=== PATIENT | female | born 1985 | race Caucasian/White ===

== ENCOUNTER 2023-09-11 14:02 | Emergency (ER) | payer BC, SELFPAY ==
[2023-09-11 14:15] VITALS: BP 112/75
[2023-09-11 14:29] LABS: % Basophils 0.4 % (0-2); % Eosinophils 1.7 % (0-6); % Immature Granulocytes 0.4 % (0-0.5); % Lymphocytes 30.4 % (20.5-51.1); % Monocytes 6.8 % (1.7-9.3); % Neutrophils 60.3 % (42.2-75.2); Absolute Eosinophils 0.1 10^3/uL (0-0.7); Absolute Lymphocytes 1.4 10^3/uL (1.2-3.4); Absolute Monocytes 0.3 10^3/uL (0.1-0.6); Absolute Neutrophils 2.9 10^3/uL (1.4-6.5); Hematocrit 33.8 % (37.0-47.0); Hemoglobin 12.1 g/dL (12.0-16.0); Mean Corp Hgb Conc. 35.8 g/dL (33.0-37.0); Mean Corpuscular Hgb 29.3 pg (27.0-31.0); Mean Corpuscular Volume 81.8 fL (81.0-99.0); Mean Platelet Volume 10.1 fL (7.4-10.4); Nucleated Red Blood Cells % 0 %; Platelet Count 234 10^3/uL (130-400); Red Blood Cell Count 4.13 10^6/uL (4.20-5.40); Red Cell Dist. Width 12.1 % (11.5-14.5); White Blood Cell Count 4.7 10^3/uL (4.8-10.8)
[2023-09-11 14:42] LABS: HCG, Serum Qualitative Screen Negative
[2023-09-11 15:12] LABS: ALT (SGPT) 13 U/L (0-35); AST (SGOT) 25 U/L (14-36); Albumin 4.4 g/dl (3.5-5.0); Alkaline Phosphatase 58 U/L (38-126); Blood Urea Nitrogen 12 mg/dl (7-17); Carbon Dioxide 24 mmol/L (22-30); Chloride 106 mmol/L (98-107); Glucose 116 mg/dl (70-99); Potassium 3.7 mmol/L (3.5-5.1); Sodium 139 mmol/L (135-145); Total Bilirubin 0.5 mg/dl (0.2-1.3); eGFR > 60.00
--- NOTE | 2023-09-11 15:42 | ED.GENMED ---
History of Present Illness
General
Chief Complaint: Vaginal Bleeding
Source: patient
Exam Limitations: none
Time Seen by Provider: 09/11/23 15:09
Nursing documentation reviewed up to this point in time: agreed with
Travel History
Have you had any contact with someone who has COVID-19?: No
Do you have any symptoms of coronavirus? Fever > 100 degrees, chills, cough, shortness of breath, sore throat, loss of taste or smell, muscle aches, or headache?: No
History of Present Illness
History of Present Illness:
37 female G2 to normal so vaginal deliveries, has been having heavy periods for some time worse over the past few months with cramps passing a lot of blood intermittent spotting between her periods, with some painful sexual activity intermittently,
menstrual cycle started yesterday last night was heavy, she spoke to her PCP who spoke to her Hand Stripper who referred her to the ER, no chest pain shortness of breath no syncope no particularly painful sexual activity, does not believe anything internally
been torn, etc.
Past History
Past History
ED Past Medical History: None
ED Past Surgical History: Gynecological (Question cervical biopsy)
Social History
Tobacco: Non-smoker
Alcohol: None
Drug: None
Personal:
Living: with family
Employment: Employed
Review of Systems
Review of Systems
All Other Systems: Not applicable
Constitutional: Reports no symptoms; Denies fatigue
EENT: Reports no symptoms
Respiratory: Reports no symptoms
Cardiac: Reports no symptoms
ABD/GI: Reports no symptoms
: Reports bleeding
Musculoskeletal: Reports no symptoms
Skin: Reports no symptoms
Phy Exam
Physical Exam
Physical Exam:
Physical Exam
General: no apparent distress, not acutely ill
Neck: No jaundice
Heart: s1/s2 regular rate and rhythm, no murmur. equal radial pulses.
Lungs: no acute respiratory distress. clear bilaterally
Abdomen: Nontender
Neuro: alert and oriented. no focal neurological deficits
Skin: no rash
Psychiatric: well kept. interactive and cooperative
Extremities: no edema.
Course
Orders/Labs/Results
Orders:
Orders
09/11/23 14:18
Test Result ONCE
09/11/23 14:22
Complete Blood Count/With Diff Urgent
Comprehensive Metabolic Panel Urgent
HCG, Serum Qualitative Screen Urgent
09/11/23 15:11
US Pelvis Only (non-obstetric) Urgent
Comment:
Reason For Exam: bleeding
09/11/23 15:22
0.9% Sodium Chloride 1000 ml [Nss] 1,000 ml IV BOLUS
Ketorolac [Toradol] 30 mg IV NOW STA
09/11/23 18:08
Tranexamic Acid [Cyklokapron] 1,300 mg PO NOW STA
Abnormal Lab Results
09/11/23
14:22
WBC 4.7 L 10^3/uL
(4.8-10.8)
RBC 4.13 L 10^6/uL
(4.20-5.40)
Hct 33.8 L %
(37.0-47.0)
Glucose 116 H mg/dl
(70-99)
09/11/23 14:22
09/11/23 14:22
Vital Signs
Initial and Last Documented VS:
Initial Vital Signs
Temp Pulse Resp BP Pulse Ox
98.1 F 83 18 112/75 99
09/11/23 14:15 09/11/23 14:15 09/11/23 14:15 09/11/23 14:15 09/11/23 14:15
Last Documented Vital Signs
Temp Pulse Resp BP Pulse Ox
98.1 F 80 18 116/89 100
09/11/23 14:15 09/11/23 17:45 09/11/23 14:15 09/11/23 17:45 09/11/23 17:45
MDM/Problems Addressed
Differential Diagnosis Includes:
Abnormal uterine bleeding, ectopic , denies any external trauma, on no blood thinners
MDM/Problems Addressed:
Vaginal bleeding
*Critical Care Note
Total Time (30-74mins, 75-104mins- exclusive of procedures): Not Applicable
Update Note
Update Note:
5:30 PM labs noted ultrasound noted formal report pending up-to-date reviewed for tranexamic acid dosing
ED Attending Note
-
Portions of this chart may have been created with voice recognition software.� Occasional wrong word or��sound alike� substitutions may have occurred due to the inherent limitations of voice recognition software.
Discharge Plan
Departure
Patient Disposition: Home (Routine Discharge)
Date of Disposition: 09/11/23
Time of Disposition: 17:57
Patient with high blood pressure during this ER visit?: No
Condition: Good
Discharge Problem:
Vaginal bleeding
Instructions: Heavy Periods (DC)
Prescriptions:
New
tranexamic acid 650 mg tablet
1,300 mg PO TID 5 Days Qty: 30 0RF
No Action
Vitamin Tablet
1 tab PO DAILY
Valtrex
1 tab PO DAILY
Referrals:
Ryan Sloan MD [Active] - Next open appointment
Ruben Sherman MD [Family Provider] -
Activity Restrictions/Additional Instructions:
Follow-up with your [employer] call tomorrow for appointment
You can take tranexamic acid 2 pills 3 times a day until your bleeding stops maximum 5 days
Interventions
Interventions:
*Risk Screen - Suicide Last Done: 09/11/23 15:40
*General Assessment Last Done: 09/11/23 14:15
*Neglect/Abuse Screening Last Done: 09/11/23 15:40
*ED COVID-19 Vaccine History Last Done: 09/11/23 14:15
*Nursing Disposition Last Done: 09/11/23 18:13
ED-Female Genitourinary Assessment Last Done: 09/11/23 15:40
Discharge Date and Time
Discharge Date/Time: 09/11/23 18:15
Print Language: TURKISH
[2023-09-11] MEDS: TORADOL 30 MG IV (15:44)
[2023-09-11] MEDS: NSS 1000 IV (15:45)
[2023-09-11 17:45] VITALS: BP 116/89
[2023-09-11] MEDS: CYKLOKAPRON 1300 MG PO (18:06)
== END 2023-09-11 18:15 | disposition home or self-care (01) ==
LOC: EMR 14:02
PROVIDERS: Physician Assistant; EMERGENCY PHYSICIAN Emergency Medicine; FAMILY PHYSICIAN Family Medicine
DX: N93.9 Abnormal uterine and vaginal bleeding, unspecified (principal)
CPT/HCPCS: 99284; 96374; 96361; 76856; 80053; 84703; 85025